=== PATIENT | female | born 1955 | race Two or more races ===

== ENCOUNTER 2024-12-27 07:00 | Day surgery (SDC) | payer OTHER ==
[2024-12-21 08:12] LABS: BASO % 1.4 % (0.1-1.2); EOS # 0.09 (0.04-0.54); EOS % 1.4 % (0.7-7.0); LYMPH # 1.19 (1.18-3.74); LYMPH % 18.4 % (19.3-53.1); MEAN PLATELET VOLUME 12.10 fl (9.4-12.4); MONO # 0.39 (0.24-0.82); MONO % 6.0 % (4.7-12.5); NEUT # 4.70 (1.56-6.13); NEUT % 72.6 % (34.0-71.1); RED CELL DISTRIBUTION WIDTH 12.8 % (11.6-14.4)
[2024-12-21 08:16] VITALS: BP 111/70
[2024-12-21 09:01] LABS: ALT/SGPT 22.0 U/L (12-78); AST/SGOT 13.0 U/L (15-37); BILIRUBIN TOTAL 0.57 mg/dL (0.3-1.2); BUN CREA RATIO 12.0 (7.0-25.0); CREATININE SERUM 0.59 mg/dL (0.55-1.02); GFR 101.06; GLOBULINA 3.1 G/DL (2.4-3.5); GLUCOSE FASTING 92.0 mg/dL (65-100); OSMOLALITY SERUM 286.0 MOSM/KG (275-295)
[2024-12-21 09:11] LABS: INR 0.98
[~2024-12-27] VITALS: Ht 152.4 cm; Wt 75.3 kg
[~2024-12-27 07:00] MED LIST: SYNTHROID50 MCG PO; TENORMIN50 M1 PO
[2024-12-27] MEDS ORDERED: POVIDONE-IODINE 118 ML BOTT TOP ONE (10:40)
[2024-12-27] MEDS ORDERED: PROMETHAZINE HCL 50 MG/ML AMPUL IM ONE (15:45)
== END 2024-12-27 16:25 | disposition home or self-care (01) ==
LOC: CIR.AMB 07:00
PROVIDERS: ATTEND Obstetrics & Gynecology
DX: N85.00 Endometrial hyperplasia, unspecified (principal); N84.1 Polyp of cervix uteri